=== PATIENT | female | born 1955 ===

== ENCOUNTER 2018-01-01 14:00 | Emergency (ER) | payer OTHER, BC ==
[2018-01-01 14:01] VITALS: BMI 28.7
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
--- NOTE | 2018-01-01 16:12 | RAD ---
Date of service: 01/01/2018 PROCEDURE: Radiographs of the Left Shoulder HISTORY: pain/injury COMPARISON: No prior. FINDINGS: BONES: Normal. No fracture. JOINTS: Mild acromioclavicular degenerative arthritis. Unremarkable glenohumeral joint. SOFT TISSUES: Normal. OTHER FINDINGS: None. IMPRESSION: No fracture. Mild acromioclavicular degenerative arthritis.
--- NOTE | 2018-01-01 16:14 | RAD ---
Date of service: 01/01/2018 PROCEDURE: Radiographs of the Lumbar Spine. HISTORY: pain/injury COMPARISON: No prior. FINDINGS: BONES: Normal alignment. No listhesis. No fracture. DISC SPACES: Unremarkable. OTHER FINDINGS: None. IMPRESSION: Unremarkable radiographs of the lumbar spine.
[2018-01-01] MEDS ORDERED: Naproxen 550 mg Tab PO STA (16:27)
[2018-01-01 17:19] VITALS: BP 119/80; PULSE 79; TEMP 98.3
[2018-01-01 17:20] VITALS: RESP 18; O2SAT 99
== END 2018-01-01 17:20 | disposition home or self-care (01) ==
LOC: ED 14:00
DX: M54.5 Low back pain (principal); M25.512 Pain in left shoulder; V03.10XA Pedestrian on foot injured in collision with car, pick-up truck or van in traffic accident, initial encounter; Y92.410 Unspecified street and highway as the place of occurrence of the external cause

== ENCOUNTER 2018-06-25 07:07 | Outpatient (CLI) | payer BC | END 2018-06-25 07:08 | disposition home or self-care (01) | LOC: CARDIO 07:07 ==